=== PATIENT | male | born 1935 | race Caucasian/White ===

== ENCOUNTER 2016-05-17 07:20 | Emergency (ER) | payer MEDICARE, OTHER ==
[~2016-05-17] VITALS: Ht 167.6 cm; Wt 77.1 kg
[~2016-05-17 07:20] MED LIST: ASPIR-LOW81 MG PO; LISINOPRIL/HCTZ1 TAB PO; NITROFURANTOIN100 M8 PO; POTASSIUM CHLOR8 ME1 PO; PREDNISONE5 MG PO; PRILOSEC40 MG PO; TERAZOSIN HCL2 M1 PO; ZESTORETIC 12.51 TA2 PO
[2016-05-17] MEDS ORDERED: OMEPRAZOLE D/R20 MG PO (07:52)
[2016-05-17 08:25] LABS: BILIRUBIN NEGATIVE (NEGATIVE); BLOOD 3+ (NEGATIVE); CLARITY CLOUDY (CLEAR); COLOR YELLOW (YELLOW); GLUCOSE NEGATIVE (NEGATIVE); KETONE TRACE (NEGATIVE); LEUKO ESTERASE NEGATIVE (NEGATIVE); NITRITE NEGATIVE (NEGATIVE); PROTEIN 1+ (NEGATIVE); UROBILINOGEN 0.2 E.U./dl (0.2-1.0)
[2016-05-17 08:39] LABS: BASO # 0.1 10*3/uL (0.0-0.1); BASO % 0.8 % (0.0-1.0); EOS # 0.1 10*3/uL (0.0-0.4); EOS % 1.1 % (1.0-4.0); HEMATOCRIT 47.5 % (42.0-52.0); HEMOGLOBIN 15.7 g/dl (14.0-18.0); LYMPH # 1.5 10*3/uL (1.3-4.4); LYMPH % 22.8 % (27.0-41.0); MEAN CELL VOLUME 87.5 fl (80.0-94.0); MEAN CORPUSCULAR HGB 28.9 pg (27.0-31.0); MEAN CORPUSCULAR HGB CONC 33.1 g/dl (33.0-37.0); MEAN PLATELET VOLUME 11.4 fl (9.6-12.3); MONO # 0.5 10*3/uL (0.1-1.0); MONO % 7.7 % (3.0-9.0); NEUT # 4.5 10*3/uL (2.3-7.9); NEUT % 67.4 % (47.0-73.0); PLATELET COUNT AUTOMATED 177 10*3/uL (130-400); RED BLOOD COUNT 5.43 10*6/uL (4.50-5.90); RED CELL DISTRI WIDTH 12.8 % (0-14.5); WHITE BLOOD COUNT 6.6 10*3/uL (4.8-10.8)
[2016-05-17 08:50] LABS: BACTERIA 1+; RBC TNTC rbc/hpf (0-2); URINE REFLEX COMMENT YES (NO)
[2016-05-17 08:52] LABS: ALBUMIN 4.1 gm/dl (3.1-4.5); BILIRUBIN, TOTAL 0.4 mg/dl (0.2-1.0); POTASSIUM 4.6 mmol/L (3.5-5.1); TOTAL PROTEIN 7.6 gm/dL (6.4-8.2)
[2016-05-17] MEDS ORDERED: CEPHALEXIN500 M1 PO (09:25)
[2016-06-21] MEDS ORDERED: TYLENOL325 M2 PO (12:12)
[2016-06-21] MEDS ORDERED: VENTOLIN H0.09 MG/AC INH ×2 (12:12→12:13)
[2016-06-21] MEDS ORDERED: OMEPRAZOLE MAGN20 MG PO (12:14)
[2016-06-21] MEDS ORDERED: METAMUCIL660 GM PO (12:14)
[2016-06-21] MEDS ORDERED: AMBIEN10 M1 JT (12:15)
[2016-06-23] MEDS ORDERED: OXYBUTYNIN CHLOR5 MG PO (12:45)
[2016-06-29] MEDS ORDERED: PROTONIX40 MG PO (14:57)
[2016-06-29] MEDS ORDERED: GAVISCON 80 MG-1 CT1 PO (14:57)
[2016-06-29] MEDS ORDERED: AMPICILLIN500 MG PO (14:57)
[2016-06-29] MEDS ORDERED: METOCLOPRAMIDE H5 M1 PO (14:57)
[2016-06-29] MEDS ORDERED: D-1000 185 MG-11 TAB PO (14:57)
== END 2016-05-17 09:29 | disposition home or self-care (01) ==
LOC: ED 07:20
PROVIDERS: Emergency Medicine
DX: N39.0 Urinary tract infection, site not specified (principal); R00.2 Palpitations; R31.9 Hematuria, unspecified; R07.89 Other chest pain; R25.1 Tremor, unspecified; R20.0 Anesthesia of skin; Z88.2 Allergy status to sulfonamides; Z79.899 Other long term (current) drug therapy; Z79.82 Long term (current) use of aspirin; Z85.51 Personal history of malignant neoplasm of bladder

== ENCOUNTER → 2016-05-22 | Outpatient (CLI) | payer MEDICARE, OTHER ==
[~2016-05-22] MED LIST changes: +AMBIEN10 M1 JT; +AMPICILLIN500 MG PO; +CEPHALEXIN500 M1 PO; +D-1000 185 MG-11 TAB PO; +GAVISCON 80 MG-1 CT1 PO; +METAMUCIL660 GM PO; +METOCLOPRAMIDE H5 M1 PO; +OMEPRAZOLE D/R20 MG PO; +OMEPRAZOLE MAGN20 MG PO; +OXYBUTYNIN CHLOR5 MG PO; +PROTONIX40 MG PO; +TYLENOL325 M2 PO; +VENTOLIN H0.09 MG/AC INH
== END | disposition home or self-care (01) ==
LOC: CT 09:42
DX: R31.9 Hematuria, unspecified (principal); Z85.51 Personal history of malignant neoplasm of bladder

== ENCOUNTER → 2016-11-05 | Outpatient (CLI) | payer MEDICARE, OTHER | END | disposition home or self-care (01) | LOC: LAB 10:37 | PROVIDERS: Specialist | DX: D49.519 Neoplasm of unspecified behavior of unspecified kidney (principal) ==

== ENCOUNTER → 2016-11-08 | Outpatient (CLI) | payer MEDICARE, OTHER | END | disposition home or self-care (01) | LOC: CT 01:54 | DX: D49.519 Neoplasm of unspecified behavior of unspecified kidney (principal) ==

== ENCOUNTER → 2017-05-04 | Outpatient (CLI) | payer MEDICARE, OTHER ==
[2017-05-04 13:12] LABS: CREATININE 1.59 mg/dL (0.70-1.30)
== END | disposition home or self-care (01) ==
LOC: CT 12:36 → LAB 12:36 → CT 13:00
PROVIDERS: Radiology Diagnostic Radiology
DX: N28.89 Other specified disorders of kidney and ureter (principal)

== ENCOUNTER → 2017-09-20 | Outpatient (CLI) | payer MEDICARE, OTHER | END | disposition home or self-care (01) | LOC: CT 13:21 | DX: N28.1 Cyst of kidney, acquired (principal); I70.1 Atherosclerosis of renal artery; K76.89 Other specified diseases of liver ==